=== PATIENT | female | born 1965 | race Caucasian/White ===

== ENCOUNTER → 2019-02-01 | Outpatient (CLI) | payer BC | END | disposition home or self-care (01) | LOC: HKI 14:35 | DX: M25.562 Pain in left knee (principal); M54.16 Radiculopathy, lumbar region; I10 Essential (primary) hypertension; E03.9 Hypothyroidism, unspecified; F17.210 Nicotine dependence, cigarettes, uncomplicated | CPT/HCPCS: 73564; 73564-LT ==